=== PATIENT | male | born 1995 | race Two or more races ===

== ENCOUNTER 2018-06-03 09:04 | Outpatient (CLI) | payer BC ==
[2018-06-03 09:03] VITALS: BP 143/75
== END 2018-06-03 09:32 | disposition home or self-care (01) ==
LOC: ORTHO 09:04
PROVIDERS: ATTEND Nurse Practitioner Family
DX: S62.306A Unspecified fracture of fifth metacarpal bone, right hand, initial encounter for closed fracture (principal); F17.200 Nicotine dependence, unspecified, uncomplicated; Y04.0XXA Assault by unarmed brawl or fight, initial encounter; Y93.89 Activity, other specified; Y92.89 Other specified places as the place of occurrence of the external cause; Y99.8 Other external cause status
CPT/HCPCS: 73130; 99213

== ENCOUNTER 2018-07-13 18:49 | Emergency (ER) | payer BC ==
--- NOTE | 2018-07-13 19:50 | NUR ---
NO RESPONSE FROM LOBBY AFTER 3 ATTEMPTS TO TRIAGE. CALL PLACED TO NUMBER ON FILE, MESSAGE LEFT EXPRESSING CONCERN FOR PATIENTS WELL BEING, AND TO ENCOURAGE HIME TO RETURN. DR. RIOS INFORMED
== END 2018-07-13 19:50 | disposition left against medical advice (07) ==
LOC: ER 18:50
DX: H57.89 Other specified disorders of eye and adnexa (principal); Z53.21 Procedure and treatment not carried out due to patient leaving prior to being seen by health care provider

== ENCOUNTER 2019-12-03 11:41 | Emergency (ER) | payer BC, OTHER ==
[~2019-12-03] VITALS: Ht 190.5 cm; Wt 90.0 kg
[2019-12-03 12:47] LABS: BASOPHILS # (AUTO) 0.1 X10'3 (0-0.2); BASOPHILS % (AUTO) 1.3 % (0-1); EOSINOPHILS # (AUTO) 0.1 X10'3 (0-0.9); EOSINOPHILS % (AUTO) 1.4 % (0-6); HEMATOCRIT 45.1 % (42.0-52.0); HEMOGLOBIN 14.9 g/dl (14.0-17.9); LYMPHOCYTES # (AUTO) 1.9 X10'3 (1.1-4.8); MEAN CORPUSCULAR HEMOGLOBIN 28.4 PG (27.0-31.0); MEAN PLATELET VOLUME 7.3 FL (7.4-10.4); MONOCYTES # (AUTO) 0.4 X10'3 (0-0.9); MONOCYTES % (AUTO) 7.5 % (2-12); NEUTROPHILS # (AUTO) 3.2 X10'3 (1.8-7.7); NEUTROPHILS % (AUTO) 55.8 % (42-75); PLATELET COUNT 258 X10'3 (140-440); RED BLOOD COUNT 5.24 X10'6 (4.70-6.10); RED CELL DISTRIBUTION WIDTH 13.6 % (11.5-14.5); WHITE BLOOD COUNT 5.7 X10'3 (4.5-11.0)
[2019-12-03 13:04] LABS: ALANINE AMINOTRANSFERASE 27 U/L (12-78); ALBUMIN 4.1 G/DL (3.4-5.0); ALBUMIN/GLOBULIN RATIO 1.4 (1.1-1.5); ALKALINE PHOSPHATASE 57 IU/L (46-116); ANION GAP 4 (8-16); ASPARTATE AMINO TRANSFERASE 21 U/L (10-37); BILIRUBIN,TOTAL 0.5 MG/DL (0.1-1.0); BLOOD UREA NITROGEN 14 MG/DL (7-18); BUN/CREATININE RATIO 13.2 (5.4-32.0); CALCIUM 8.8 MG/DL (8.5-10.1); CHLORIDE 108 MMOL/L (99-107); CREATININE 1.06 MG/DL (0.60-1.10); GLUCOSE 101 MG/DL (70-104); LIPASE 102 U/L (73-393); POTASSIUM 4.5 MMOL/L (3.5-5.1); SODIUM 139 MMOL/L (135-145); TOTAL CARBON DIOXIDE 26.8 MMOL/L (24-32); TOTAL PROTEIN 7.1 G/DL (6.4-8.2); eGFR 86 ML/MIN
[2019-12-03 14:36] LABS: CLARITY,URINE CLEAR (Clear); COLOR,URINE YELLOW (Yellow); GLUCOSE, URINE NEGATIVE (Neg); KETONES,URINE NEGATIVE (Neg); LEUKOCYTE ESTERASE ,URINE NEGATIVE (Neg); NITRITES, URINE NEGATIVE (Neg); OCCULT BLOOD,URINE NEGATIVE (Neg); PROTEIN,URINE NEGATIVE (Neg); UA COLLECTION TYPE VOIDED; UROBILINOGEN,URINE 0.2 E.U/dL (0.2-1.0)
[2019-12-03 15:13] VITALS: BP 123/76
== END 2019-12-03 15:16 | disposition home or self-care (01) ==
LOC: ER 11:41
DX: I86.1 Scrotal varices (principal); R10.31 Right lower quadrant pain; R10.32 Left lower quadrant pain; N50.89 Other specified disorders of the male genital organs; F12.90 Cannabis use, unspecified, uncomplicated; Z72.89 Other problems related to lifestyle
CPT/HCPCS: 36415; 72192; 80053; 81003; 83690; 85025; 99284

== ENCOUNTER 2022-06-28 13:51 | Emergency (ER) | payer OTHER ==
[~2022-06-28] VITALS: Ht 190.5 cm; Wt 101.0 kg
[2022-06-28 13:58] VITALS: BP 163/99
== END 2022-06-28 14:58 | disposition left against medical advice (07) ==
LOC: ER 13:51
DX: S61.211A Laceration without foreign body of left index finger without damage to nail, initial encounter (principal); Z53.21 Procedure and treatment not carried out due to patient leaving prior to being seen by health care provider; X58.XXXA Exposure to other specified factors, initial encounter; Y93.9 Activity, unspecified; Y92.9 Unspecified place or not applicable; Y99.9 Unspecified external cause status